=== PATIENT | female | born 1955 | race Caucasian/White ===

== ENCOUNTER 2017-12-27 09:31 | Day surgery (SDC) | payer OTHER ==
[2017-12-27 10:25] VITALS: BMI 44.6
[2017-12-27 12:05] VITALS: TEMP 97.8
[2017-12-27 12:54] VITALS: BP 126/61; PULSE 61
[2017-12-27 13:20] LABS: BASO % 0.9 % (0-2.0); EOS % 0.9 % (0-4.5); HEMATOCRIT 39.5 % (32.4-45.2); HEMOGLOBIN 13.4 GM/dL (10.7-15.3); MCH 31.7 pg (25.7-33.7); MCHC 33.9 g/dl (32.0-36.0); MEAN CELL VOLUME 93.3 fl (80-96); MONO % 9.7 % (3.8-10.2); NEUT % 58.5 % (42.8-82.8); PLATELET COUNT 218 K/MM3 (134-434); RBC 4.23 M/mm3 (3.60-5.2); WHITE BLOOD COUNT 4.9 K/mm3 (4.0-10.0)
[2017-12-27 13:39] LABS: INR 1.1 (0.83-1.09); PROTHROMBIN TIME (PATIENT) 12.4 SEC (9.7-13.0)
[2017-12-27 13:46] LABS: ALBUMIN 3.6 g/dl (3.4-5.0); ALK PHOS 121 U/L (45-117); ANION GAP 7 (8-16); BILIRUBIN,TOTAL 0.4 mg/dL (0.2-1.0); BLOOD UREA NITROGEN 12 mg/dL (7-18); CALCIUM 8.6 mg/dL (8.5-10.1); CHLORIDE 109 mmol/L (98-107); CO2 26 mmol/L (21-32); CREATININE 0.7 mg/dL (0.55-1.02); GLUCOSE,RANDOM 76 mg/dL (74-106); POTASSIUM 4.3 mmol/L (3.5-5.1); SGOT/AST 20 U/L (15-37); SGPT/ALT 20 U/L (12-78); SODIUM 142 mmol/L (136-145)
--- NOTE | 2017-12-28 14:25 | PATH ---
Surgical Pathology Report Patient Name: EDUARDO EDWARDS [facility]. Rec. #: [id number] /Age/Gender: 1955 (Age: 62) / F Account: [id number] Location: [facility]-ENDOSCOPY Taken: 12/27/2017 Received: 12/27/2017 Reported: 12/28/2017 Physicians: Gustavo Espino D.O. Specimen(s) Received A: BX ANTRUM B: BX BODY Clinical History Obesity, screening Postoperative diagnosis: Antral gastritis Final Diagnosis A. STOMACH, ANTRUM, BIOPSY: GASTRIC ANTRAL MUCOSA WITH SEVERE CHRONIC ACTIVE GASTRITIS. IMMUNOHISTOCHEMICAL STAIN FOR H. PYLORI IS POSITIVE (FEW). B. STOMACH, BODY, BIOPSY: GASTRIC BODY MUCOSA WITH MODERATE TO SEVERE CHRONIC ACTIVE GASTRITIS. IMMUNOHISTOCHEMICAL STAIN FOR H. PYLORI IS POSITIVE (MANY). Electronically Signed Eloise Del Rosario M.D. Gross Description A. Received in formalin, labeled "biopsy antrum" are 2 corbett, irregular portions of soft tissue measuring 0.2 and 0.4 cm. in greatest dimension. The specimens are submitted in toto in one cassette. B. Received in formalin, labeled "biopsy body of stomach" are 4 corbett, irregular portions of soft tissue ranging from 0.2-0.3 cm. in greatest dimension. The specimens are submitted in toto in one cassette. 12/27/201712/27/2017
[2017-12-30 00:06] LABS: HBSAG SCREEN Negative (Negative); HEP A AB, IGM Negative (Negative); HEP B CORE AB, TOT Positive (Negative)
== END 2017-12-27 12:53 | disposition home or self-care (01) ==
LOC: JASU-ENDO 09:31
PROVIDERS: ATTEND Internal Medicine Gastroenterology
PROC: 0DB68ZX Excision of Stomach, Via Natural or Artificial Opening Endoscopic, Diagnostic (ICD-10-PCS; principal; 2017-12-27 10:15)
DX: K29.50 Unspecified chronic gastritis without bleeding (principal); B96.81 Helicobacter pylori [H. pylori] as the cause of diseases classified elsewhere; E66.9 Obesity, unspecified; Z68.41 Body mass index [BMI] 40.0-44.9, adult; K22.8 Other specified diseases of esophagus
CPT/HCPCS: 36415; 80053; 85025; 85610; 86704; 86706; 86708; 86803; 87340; 88305-TC; 88342-TC

== ENCOUNTER 2018-01-03 09:38 | Day surgery (SDC) | payer OTHER ==
[2018-01-03 10:34] VITALS: BMI 45.4
[2018-01-03 11:30] VITALS: TEMP 97.5
[2018-01-03 13:55] VITALS: BP 140/67; PULSE 57
--- NOTE | 2018-01-04 16:48 | PATH ---
Surgical Pathology Report Patient Name: EDUARDO EDWARDS [facility]. Rec. #: [id number] /Age/Gender: 1955 (Age: 62) / F Account: [id number] Location: [facility]-ENDOSCOPY Taken: 01/03/2018 Received: 01/03/2018 Reported: 01/04/2018 Physicians: Gustavo Espino D.O. Specimen(s) Received BX RIGHT COLON POLYP Clinical History Constipation, screening Postoperative diagnosis: Diverticulosis, polyp, internal hemorrhoids Final Diagnosis RIGHT COLON, POLYP, BIOPSY: COLONIC MUCOSA SHOWING MILD SURFACE HYPERPLASTIC CHANGE. Electronically Signed Mattie Ortega M.D. Gross Description Received in formalin, labeled "polyp right colon" is a corbett, irregular portion of soft tissue measuring 0.4 cm. in greatest dimension. The specimen is submitted in toto in one cassette. /01/03/2018 saudi01/03/2018
== END 2018-01-03 12:54 | disposition home or self-care (01) ==
LOC: JASU-ENDO 09:38
PROVIDERS: ATTEND Internal Medicine Gastroenterology
PROC: 0DBF8ZX Excision of Right Large Intestine, Via Natural or Artificial Opening Endoscopic, Diagnostic (ICD-10-PCS; principal; 2018-01-03 09:00)
DX: Z12.11 Encounter for screening for malignant neoplasm of colon (principal); K63.5 Polyp of colon; K57.30 Diverticulosis of large intestine without perforation or abscess without bleeding; K64.8 Other hemorrhoids
CPT/HCPCS: 88305-TC

== ENCOUNTER 2021-12-15 19:11 | Emergency (ER) | payer OTHER ==
[2021-12-15 19:46] VITALS: BP 139/82; PULSE 82; RESP 20; TEMP 98.2; BMI 43.0
[2021-12-15] MEDS ORDERED: KETOROLAC TROMETHAMINE 30 MG/1 ML VIAL IM ONE (20:02)
[2021-12-15] MEDS ORDERED: KETOROLAC TROMETHAMINE 30 MG/1 ML VIAL ONE (20:05)
== END 2021-12-15 20:48 | disposition home or self-care (01) ==
LOC: JER 19:11 → JERFT 19:11
PROC: 3E0233Z Introduction of Anti-inflammatory into Muscle, Percutaneous Approach (ICD-10-PCS; principal; 2021-12-15)
DX: M25.561 Pain in right knee (principal); M25.562 Pain in left knee; R07.9 Chest pain, unspecified; M54.50 Low back pain, unspecified; V49.50XA Passenger injured in collision with unspecified motor vehicles in traffic accident, initial encounter
CPT/HCPCS: 71046-TC-FY; 71101-TC-LT-FY; 72100-TC-FY; 73562-TC-LT-FY; 73562-TC-RT-FY; 99285-25